=== PATIENT | female | born 1960 | race Caucasian/White ===

== ENCOUNTER 2017-08-26 12:31 | Inpatient (IN) | payer BC ==
[~2017-08-26] VITALS: Ht 162.6 cm; Wt 77.1 kg
--- NOTE | 2017-08-26 13:34 | NUR ---
PT IS IN BED #2B. DR PATEL EVALUATED THE PT.
[2017-08-26] MEDS ORDERED: IV NORMAL SALINE 1000 ML BAG IV ONE ×4 (13:45→21:00)
[2017-08-26] MEDS ORDERED: ONDANSETRON 4 MG/2 ML VIAL IV ONE (13:45)
[2017-08-26] MEDS ORDERED: ONDANSETRON 4 MG/2 ML VIAL ONE (13:51)
[2017-08-26 14:07] LABS: BASOPHILS % (AUTO) 0.3 % (0.0-2.0); EOSINOPHILS % (AUTO) 0.1 % (0.0-7.0); HEMATOCRIT 49.7 % (37-47); HEMOGLOBIN 16.4 G/DL (12.0-16.0); LYMPHOCYTES # (AUTO) 0.9 K/UL (0.8-4.8); LYMPHOCYTES % (AUTO) 6.1 % (20.5-51.5); MEAN CORPUSCULAR HEMOGLOBIN 28.8 UUG (27.0-31.0); MEAN CORPUSCULAR HGB CONC 33 g/dL (32.0-37.0); MEAN CORPUSCULAR VOLUME 87.5 FL (81.0-99.0); MONOCYTES # (AUTO) 0.4 K/UL (0.1-1.30); MONOCYTES % (AUTO) 2.6 % (0.0-11.0); NEUTROPHILS # (AUTO) 13.5 K/UL (1.8-8.9); NEUTROPHILS % (AUTO) 90.9 % (38.5-71.5); PLATELET COUNT (AUTO) 245 K/UL (150-450); RED BLOOD CELL COUNT(AUTO) 5.68 MIL/UL (4.2-5.4); WHITE BLOOD COUNT (AUTO) 14.8 K/UL (4.0-11.2)
[2017-08-26] MEDS ORDERED: KETOROLAC TROMETHAMINE 30 MG INJ IVP ONE (14:30)
[2017-08-26] MEDS ORDERED: DIAZEPAM 10 MG/2 ML DISP.SYRIN IV ONE ×2 (14:30→20:15)
[2017-08-26 14:45] LABS: CREATININE 1.6 mg/dL (0.6-1.3); POTASSIUM 5.3 mmol/L (3.5-5.1)
[2017-08-26] MEDS ORDERED: DIAZEPAM 2 MG TABLET PO ONE ×2 (14:45→20:15)
[2017-08-26] MEDS ORDERED: KETOROLAC TROMETHAMINE 30 MG INJ ONE (14:49)
[2017-08-26] MEDS ORDERED: DIAZEPAM 5 MG TABLET ONE ×2 (14:53→20:29)
[2017-08-26 14:54] LABS: BILIRUBIN,DIRECT 0.1 mg/dL (0.0-0.2); BILIRUBIN,TOTAL 0.5 mg/dL (0.2-1.0); TOTAL PROTEIN, SERUM 8.9 g/dL (6.4-8.2)
[2017-08-26] MEDS ORDERED: LOPERAMIDE HCL 2 MG CAPSULE PO ONE (15:30)
[2017-08-26] MEDS ORDERED: LOPERAMIDE HCL 2 MG CAPSULE ONE (15:37)
[2017-08-26 15:59] LABS: ABG BASE EXCESS -14.6 mmol/L; ABG HCO3 11.9 mmol/L; ABG PCO2 30.3 mmHg (35.0-45.0); ABG PH 7.211 (7.350-7.450); ABG PO2 76.5 mmHg (75.0-100.0); ABG SITE RIGHT RADIAL; ABG TOTAL HEMOGLOBIN 14.6 G/dL (12.0-16.0); COHb 1.1 % (0.5-1.5); MetHb 0.2 % (0.0-1.5); O2Hb 92.9 % (94.0-97.0); VENT MODE ROOM AIR
[2017-08-26 16:15] LABS: CREATININE 1.3 mg/dL (0.6-1.3); POTASSIUM 5.3 mmol/L (3.5-5.1)
[2017-08-26 16:24] LABS: BILIRUBIN,TOTAL 0.4 mg/dL (0.2-1.0); TOTAL PROTEIN, SERUM 8.2 g/dL (6.4-8.2)
[2017-08-26 20:55] LABS: *BILIRUBIN,URIN NEGATIVE (NEGATIVE); *BLOOD, URINE 2+ (NEGATIVE); *CLARITY,URINE SLIGHTLY CLOUDY (CLEAR); *COLOR,URINE YELLOW (YELLOW); *KETONES,URINE TRACE (NEGATIVE); *PROTEIN,URINE 2+ (NEGATIVE); *UROBILINOGEN,URINE 0.2 E.U./dl (NORMAL); LEUKOCYTE ESTERASE ,URINE NEGATIVE (NEGATIVE); NITRITE, URINE NEGATIVE (NEGATIVE); PH,URINE 5.5 (5.0-8.0); UGLUCOSE NEGATIVE (NEGATIVE)
[2017-08-26 21:01] LABS: BACTERIA,URINE FEW /HPF (NONE SEEN); COARSE GRANULAR CASTS,URINE FEW /LPF; SQUAMOUS EPITHELIAL CELL,UR FEW /HPF (NONE SEEN)
--- NOTE | 2017-08-26 21:19 | NUR ---
Patient cleared for admission to [facility] by ER . Dr Gage aware, confirmed unit for admission.
--- NOTE | 2017-08-26 21:25 | NUR ---
Report given to Char Alanis
--- NOTE | 2017-08-26 22:03 | NUR ---
Pt. admitted to Telemetry , under care of Dr. Gage. Dx: Pooly controlled DM Belongs List completed
[2017-08-26 22:05] VITALS: BP 115/66
--- NOTE | 2017-08-26 22:10 | NUR ---
Admitted patient from ER via with admitting DX: NEW ONSET DM. AAOx4. Ambulatory with steady gait. Routine admission care done. Plan of care initiated.
[2017-08-26] MEDS ORDERED: INSULIN REGULAR, HUMAN 300 UNIT/3 ML VIAL SQ PRN (22:30)
[2017-08-26] MEDS ORDERED: ZOLPIDEM 5 MG TABLET PO PRN (22:30)
[2017-08-26] MEDS ORDERED: ONDANSETRON 4 MG/2 ML VIAL IV PRN (22:30)
[2017-08-26] MEDS ORDERED: DEXTROSE 50% 50 ML DISP.SYRIN IV PRN (22:30)
[2017-08-26] MEDS ORDERED: ACETAMINOPHEN 325 MG TABLET PO PRN (22:30)
[2017-08-26] MEDS ORDERED: MORPHINE SULFATE 2 MG/1 ML DISP.SYRIN IV PRN (22:30)
[2017-08-26] MEDS: IV 1/2NS 1000 ML 1,000 ML IV PRN (23:44)
[2017-08-26] MEDS: BLOOD SUGAR DIAGNOSTIC 1 EACH STRIP VI SCH (23:44)
--- NOTE | 2017-08-26 23:45 | NUR ---
Tylenol gr 10 given for complaint of headache. Will monitor.
[2017-08-27] VITALS: BP 120/67
[2017-08-27] MEDS ORDERED: ACETAMINOPHEN 325 MG TABLET ONE
[2017-08-27] MEDS ORDERED: DIAZEPAM 5 MG TABLET PO ONE (01:15)
[2017-08-27] MEDS ORDERED: DIAZEPAM 5 MG TABLET ONE (01:23)
--- NOTE | 2017-08-27 01:25 | NUR ---
Valium 5mg oral given for complaint of leg cramps. Will monitor.
--- NOTE | 2017-08-27 02:50 | NUR ---
Angela C-diff specimen collected and sent to the lab as ordered.
[2017-08-27 04:00] VITALS: BP 117/61
[2017-08-27 06:31] LABS: THYROID STIMULATING HORMONE 0.91 mIU/mL (0.358-3.740)
[2017-08-27 06:33] LABS: BASOPHILS % (AUTO) 0.3 % (0.0-2.0); EOSINOPHILS % (AUTO) 0.1 % (0.0-7.0); HEMOGLOBIN 14.2 G/DL (12.0-16.0); LYMPHOCYTES # (AUTO) 2.6 K/UL (0.8-4.8); LYMPHOCYTES % (AUTO) 20.1 % (20.5-51.5); MEAN CORPUSCULAR HGB CONC 33 g/dL (32.0-37.0); MEAN CORPUSCULAR VOLUME 87.1 FL (81.0-99.0); MONOCYTES # (AUTO) 0.9 K/UL (0.1-1.30); MONOCYTES % (AUTO) 7.4 % (0.0-11.0); NEUTROPHILS # (AUTO) 9.3 K/UL (1.8-8.9); NEUTROPHILS % (AUTO) 72.1 % (38.5-71.5); PLATELET COUNT (AUTO) 247 K/UL (150-450); WHITE BLOOD COUNT (AUTO) 12.8 K/UL (4.0-11.2)
[2017-08-27 06:36] LABS: RED BLOOD CELL COUNT(AUTO) 4.89 MIL/UL (4.2-5.4)
[2017-08-27 06:37] LABS: HEMATOCRIT 42.5 % (37-47)
[2017-08-27 06:38] LABS: BILIRUBIN,TOTAL 0.6 mg/dL (0.2-1.0); CREATININE 0.8 mg/dL (0.6-1.3); MAGNESIUM 2.3 mg/dL (1.8-2.4); PHOSPHOROUS 3.3 mg/dL (2.5-4.9); TOTAL PROTEIN, SERUM 7.3 g/dL (6.4-8.2)
--- NOTE | 2017-08-27 08:00 | NUR ---
AWAKE ALERT AND PLEASANT DENIES PAIN, NV OR SOB CONTINUE IVF ORDERED. AFEBRILE
[2017-08-27] MEDS: PANTOPRAZOLE SODIUM 40 MG TABLET.DR PO SCH (08:23)
[2017-08-27] MEDS: BLOOD SUGAR DIAGNOSTIC 1 EACH STRIP VI SCH ×4 (08:23→21:20)
[2017-08-27 11:11] VITALS: BP 109/66
[2017-08-27] MEDS: IV 1/2NS 1000 ML 1,000 ML IV PRN ×2 (11:12→21:29)
--- NOTE | 2017-08-27 12:00 | NUR ---
NO CHANGE OF STATUS FROM BASELINE ASSESSMENT
[2017-08-27 15:34] VITALS: BP 123/64
--- NOTE | 2017-08-27 15:35 | NUR ---
STILL HAVING FREQUENCY OF STOOL, AWAITING C-DIFF RESULTS, BS WNL
--- NOTE | 2017-08-27 19:00 | NUR ---
Awake during initial rounds. Denies any pain/discomforts at this time. IVF continues. Continue care as planned.
[2017-08-27 20:02] VITALS: BP 111/60
[2017-08-28] MEDS: PANTOPRAZOLE SODIUM 40 MG TABLET.DR PO SCH (06:19)
[2017-08-28 06:21] LABS: BASOPHILS % (AUTO) 0.6 % (0.0-2.0); EOSINOPHILS # (AUTO) 0.1 K/uL (0.0-0.7); EOSINOPHILS % (AUTO) 1.7 % (0.0-7.0); HEMATOCRIT 38.6 % (37-47); HEMOGLOBIN 12.6 G/DL (12.0-16.0); LYMPHOCYTES # (AUTO) 3.2 K/UL (0.8-4.8); LYMPHOCYTES % (AUTO) 44.7 % (20.5-51.5); MEAN CORPUSCULAR HEMOGLOBIN 28.2 UUG (27.0-31.0); MEAN CORPUSCULAR HGB CONC 33 g/dL (32.0-37.0); MEAN CORPUSCULAR VOLUME 86.4 FL (81.0-99.0); MONOCYTES # (AUTO) 0.5 K/UL (0.1-1.30); NEUTROPHILS # (AUTO) 3.5 K/UL (1.8-8.9); PLATELET COUNT (AUTO) 208 K/UL (150-450); RED BLOOD CELL COUNT(AUTO) 4.47 MIL/UL (4.2-5.4); WHITE BLOOD COUNT (AUTO) 7.3 K/UL (4.0-11.2)
[2017-08-28 06:26] VITALS: BP 110/62
[2017-08-28 06:43] LABS: CREATININE 0.6 mg/dL (0.6-1.3); MAGNESIUM 1.9 mg/dL (1.8-2.4); PHOSPHOROUS 2.2 mg/dL (2.5-4.9); POTASSIUM 3.8 mmol/L (3.5-5.1)
--- NOTE | 2017-08-28 06:56 | NUR ---
Slept well. No s/s of hypo/hyperglycemia noted. No more diarrhea reported. VS stable. Continue current plan of care.
--- NOTE | 2017-08-28 08:00 | NUR ---
NO SIGNS OF PAIN OR DISTRESS STABLE. AWAITING DC HOME ORDER
[2017-08-28] MEDS ORDERED: FAMO-132 PO (11:26)
[2017-08-28] MEDS ORDERED: NEUTRA PHOS PACKET PO ONE (11:30)
--- NOTE | 2017-08-28 11:45 | NUR ---
SEEN BY DR JANG WITH DISCHARGE ORDER, INFORMATION SERVICES MANAGER AND FAMILY MADE AWARE
[2017-08-28 11:52] VITALS: BP 118/64
--- NOTE | 2017-08-28 12:51 | NUR ---
DISCHARGED HOME STABLE WITH MEDS AND FOLLOW-UP INSTRUCTION WITH PMD
--- NOTE | 2017-08-29 08:46 | NUR ---
Faxed Clinical Reviews and D/C Summary to Cecy Moffett [ ; ] with Ref# [id number]].
== END 2017-08-28 12:50 | disposition home or self-care (01) | DRG 391 ==
LOC: ER 12:34 → TELE 21:30 → MED 08-27 17:12
PROVIDERS: ADMIT Internal Medicine; ATTEND Internal Medicine
DX: A08.4 Viral intestinal infection, unspecified (principal); N17.0 Acute kidney failure with tubular necrosis; E87.2 Acidosis; Z98.84 Bariatric surgery status; E86.0 Dehydration; I45.81 Long QT syndrome; E66.9 Obesity, unspecified; Z68.29 Body mass index [BMI] 29.0-29.9, adult; E87.5 Hyperkalemia; Z90.49 Acquired absence of other specified parts of digestive tract; R73.9 Hyperglycemia, unspecified; D72.828 Other elevated white blood cell count
CPT/HCPCS: 36415; 36600; 71010; 83690; 83735; 84100; 84443; 85025; 87086; 93005; A4663; J1815; J1885; J2405; J3490; J7030